=== PATIENT | female | born 2000 | race Hispanic/Latino ===

== ENCOUNTER 2022-06-15 21:09 | Observation (INO) | payer OTHER, MEDICAID ==
[~2022-06-15] VITALS: Ht 165.1 cm; Wt 65.8 kg
[2022-06-15] MEDS ORDERED: PREN-196 PO (21:44)
[2022-06-15] MEDS ORDERED: FERR-82 PO (21:44)
[2022-06-15 21:55] LABS: APPEARANCE,URINE CLEAR (CLEAR); BILIRUBIN,URINE NEGATIVE (NEGATIVE); COLOR,URINE LIGHT-YELLOW (YELLOW); GLUCOSE, URINE (UA) NEGATIVE (NEGATIVE); KETONES,URINE NEGATIVE (NEGATIVE); LEUKOCYTE ESTERASE ,URINE 500 Leu/uL (NEGATIVE); NITRATE,URINE NEGATIVE (NEGATIVE); OCCULT BLOOD,URINE NEGATIVE (NEGATIVE); PROTEIN,URINE NEGATIVE (NEGATIVE); UROBILINOGEN,URINE 0.2 mg/dL (0.2-1.0)
[2022-06-15 22:02] LABS: BACTERIA,URINE RARE /HPF (None Seen); MUCUS,URINE RARE LPF (None Seen); SQUAMOUS EPITHELIAL CELL,UR FEW /HPF (0-2)
[2022-06-15 22:25] LABS: AMPHET/METH SCREEN,URINE NEGATIVE (NEGATIVE); BARBITURATE SCREEN, URINE NEGATIVE (NEGATIVE); BENZODIAZEPINES SCREEN,URINE NEGATIVE (NEGATIVE); CANNABINOID SCREEN,URINE NEGATIVE (NEGATIVE); COCAINE SCREEN,URINE NEGATIVE (NEGATIVE); OPIATE SCREEN,URINE NEGATIVE (NEGATIVE); PHENCYCLIDINE SCREEN,URINE NEGATIVE (NEGATIVE)
[2022-06-16 00:17] VITALS: BP 118/64
[2022-06-16 00:19] LABS: BASOPHILS % (AUTO) 0.2 % (0.0-5.0); EOSINOPHILS % (AUTO) 1.2 % (0.0-8.0); HEMATOCRIT 22.2 % (36-48); LYMPHOCYTES % (AUTO) 21.9 % (21.0-51.0); MEAN CORPUSCULAR HEMOGLOBIN 23.8 pg (27.0-33.0); MEAN CORPUSCULAR HGB CONC 30.2 g/dL (32.0-36.0); MEAN CORPUSCULAR VOLUME 78.7 fL (79-99); MONOCYTES % (AUTO) 7.1 % (3.0-13.0); PLATELET COUNT (AUTO) 221 K/uL (130-400); RED BLOOD CELL COUNT(AUTO) 2.82 MIL/uL (4.00-5.50); RED CELL DISTRIBUTION WIDTH 14.7 % (11.0-15.5)
[2022-06-16 00:23] LABS: POTASSIUM 3.6 mmol/L (3.5-5.1)
[2022-06-16] MEDS ORDERED: LACTATED RINGERS 1000ML 1,000 ML IV SCH (00:30)
[2022-06-16 05:07] LABS: HEMATOCRIT 23.9 % (36-48); MEAN CORPUSCULAR HEMOGLOBIN 24.8 pg (27.0-33.0); MEAN CORPUSCULAR HGB CONC 31.4 g/dL (32.0-36.0); MEAN CORPUSCULAR VOLUME 78.9 fL (79-99); RED BLOOD CELL COUNT(AUTO) 3.03 MIL/uL (4.00-5.50); RED CELL DISTRIBUTION WIDTH 15.1 % (11.0-15.5); WHITE BLOOD COUNT (AUTO) 8.3 K/uL (4.8-10.8)
[2022-06-16 10:33] LABS: HEMATOCRIT 26.3 % (36-48)
== END 2022-06-16 11:08 | disposition home or self-care (01) ==
LOC: EDH 21:09 → LDH 21:36
PROVIDERS: ADMIT Obstetrics & Gynecology; ATTEND Obstetrics & Gynecology
DX: O99.013 Anemia complicating pregnancy, third trimester (principal); D64.9 Anemia, unspecified; Z3A.36 36 weeks gestation of pregnancy
CPT/HCPCS: 80051; 80305; 85025; 87088; 81001; 36415; 36430; 96360; 96361; 85027; 85014; 85018; 86850; 86900; 86901; 86923 ×2; G0378 ×8; G0379; P9016 ×2

== ENCOUNTER → 2022-08-06 | Day surgery (SDC) | payer OTHER, MEDICAID ==
[2022-08-06] VITALS (7 sets, daily range): BP systolic 131–142; BP diastolic 70–97
[~2022-08-06] MED LIST: ACET-2079 PO; FERR-82 PO; MEPERIDINE-PF 25 MG/ML SYG ONE; PREN-226 PO
== END | disposition home or self-care (01) ==
LOC: DAH 14:10
PROVIDERS: ATTEND Nurse Anesthetist, Certified Registered
DX: R51.9 Headache, unspecified (principal)
CPT/HCPCS: 62273; J2175; A4620; A4215; A4223; A4657 ×3; A4222; A4221; A4663; A4216; J7030; A4606